=== PATIENT | female | born 1950 | race Caucasian/White ===

== ENCOUNTER 2023-06-24 12:15 | Day surgery (SDC) | payer SELFPAY ==
[2023-06-24] MEDS: Polymyxin B/Trimethoprim 10 ML Bottle EYERT SCH (12:54)
[2023-06-24] MEDS: Brimonidine 0.2% Ophth Soln 5 ML Bottle EYERT SCH (12:57)
[2023-06-24] MEDS: Phenylephrine 2.5% Ophth Soln 2 ML Bot EYERT SCH (13:00)
[2023-06-24] MEDS: Tropicamide 1% Ophth Soln 3 ML Bottle EYERT SCH (13:04)
[2023-06-24] MEDS: Tetracaine HCl/PF 0.5% 4 ML Bottle EYEBOTH SCH (13:41)
[2023-06-24] MEDS: Lidocaine 1% PF 2 ML SDV INJECT SCH (14:03)
[2023-06-24] MEDS: Pilocarpine 4% Ophth Soln 15 ML Bot EYERT SCH (14:18)
[2023-06-24] MEDS: Cefuroxime 10 MG/ML SYRINGE EYERT SCH (14:18)
== END 2023-06-24 14:29 | disposition home or self-care (01) ==
LOC: JD.SDS 12:15
PROVIDERS: ATTEND Ophthalmology
DX: E11.36 Type 2 diabetes mellitus with diabetic cataract (principal); H25.811 Combined forms of age-related cataract, right eye; H21.81 Floppy iris syndrome; H21.41 Pupillary membranes, right eye; H53.021 Refractive amblyopia, right eye; H40.033 Anatomical narrow angle, bilateral; I10 Essential (primary) hypertension; Z88.5 Allergy status to narcotic agent
CPT/HCPCS: 82947; A9270-GY; J0697; J3490